=== PATIENT | male | born 1980 | race Caucasian/White ===

== ENCOUNTER 2023-02-21 19:24 | Inpatient (IN) | payer BC ==
[~2023-02-21] VITALS: Ht 175.3 cm; Wt 99.3 kg
[2023-02-21 19:33] VITALS: BP_SYST 220; PULSE 92; RESP 18; TEMP 97.9; O2SAT 99
[2023-02-21] MEDS ORDERED: LABETALOL HCL 20 MG/4 ML CARTRIDGE IVP ONE ×2 (20:00→22:15)
[2023-02-21] MEDS ORDERED: METOPROLOL SUCCINATE 25 MG TAB.SR.24H (TOPROL XL) PO ONE (20:00)
[2023-02-21] MEDS ORDERED: ONDANSETRON HCL 4 MG/2 ML VIAL IVP ONE ×2 (20:15→21:00)
[2023-02-21] MEDS ORDERED: ATENOLOL 50 MG TABLET (TENORMIN) PO ONE (20:30)
[2023-02-21 20:34] LABS: BASOPHILS # (AUTO) 0.1 K/uL (0.0-0.2); BASOPHILS % (AUTO) 0.8 % (0.0-2.0); EOSINOPHILS # (AUTO) 0.1 K/uL (0.0-0.4); EOSINOPHILS % (AUTO) 1.3 % (0.0-4.0); HEMATOCRIT 25.7 % (36-54); HEMOGLOBIN 8.3 g/dL (14.0-18.0); LYMPHOCYTES # (AUTO) 0.8 K/uL (1.0-5.5); LYMPHOCYTES % (AUTO) 12.1 % (20.5-51.5); MEAN CORPUSCULAR HEMOGLOBIN 28 pg (27-31); MEAN CORPUSCULAR HGB CONC 32 % (32-36); MEAN CORPUSCULAR VOLUME 86 fL (79.0-98.0); MONOCYTES # (AUTO) 0.5 K/uL (0.0-1.0); MONOCYTES % (AUTO) 8.4 % (1.7-9.3); NEUTROPHILS # (AUTO) 4.8 K/uL (1.8-7.7); NEUTROPHILS % (AUTO) 77.4 % (40.0-70.0); PLATELET COUNT (AUTO) 172 K/uL (130-430); RED CELL DISTRIBUTION WIDTH 16.2 % (9.0-15.0); WHITE BLOOD COUNT (AUTO) 6.2 K/uL (4.8-10.8)
[2023-02-21 20:46] LABS: PROTHROMBIN TIME 10.5 SECS (9.5-12.5)
[2023-02-21 20:50] LABS: ALANINE AMINOTRANSFERASE 12 U/L (12-78); ALBUMIN 2.8 g/dL (3.4-4.8); ANION GAP 13 (5-15); ASPARTATE AMINOTRANSFERASE 19 U/L (10-37); CALCIUM 8.5 mg/dL (8.4-11.0); CARBON DIOXIDE 13 mmol/L (23-29); CHLORIDE 117 mmol/L (98-107); CREATININE 5.64 mg/dL (0.55-1.30); GFR AFRICAN AMERICAN 14 mL/min (>90); GLUCOSE 81 mg/dL (74-106); SODIUM SERUM 143 mmol/L (136-145); TOTAL BILIRUBIN 0.6 mg/dL (0.0-1.0); TOTAL PROTEIN, SERUM 5.3 g/dL (6.4-8.3); UREA NITROGEN, BLOOD 36 mg/dL (8-21)
[2023-02-21 20:51] LABS: ALCOHOL, BLOOD < 3 mg/dL (<10); GFR NON AFRICAN-AMERICAN 12 mL/min (>90)
[2023-02-21 20:53] LABS: POTASSIUM 6.2 mmol/L (3.5-5.1)
[2023-02-21] MEDS ORDERED: SODIUM BICARBONATE 8.4% JECT 50 MEQ/50 ML SYRINGE IVP ONE (21:00)
[2023-02-21] MEDS ORDERED: DEXTROSE 50% JECT 50 ML DISP.SYRIN IVP ONE (21:00)
[2023-02-21] MEDS ORDERED: LORazepam 2 MG/ML VIAL IVP ONE (21:00)
[2023-02-21] MEDS ORDERED: SODIUM ZIRCONIUM CYCLOSILICATE 10 GM POWD.PACK PO ONE (21:00)
[2023-02-21] MEDS ORDERED: CALCIUM CHLORIDE 1 GM/10 ML DISP.SYRIN (14 mEq Ca++/SYR) IVP ONE (21:00)
[2023-02-21] MEDS ORDERED: INSULIN REGULAR, HUMAN 10 UNITS/0.1 ML, 3 ML VIAL IVP ONE (21:00)
[2023-02-21] MEDS ORDERED: FUROSEMIDE 40 MG/4 ML VIAL IVP ONE (21:15)
[2023-02-21] MEDS ORDERED: HALOPERIDOL LACTATE 5 MG/ML VIAL IM ONE (21:30)
[2023-02-21] MEDS ORDERED: NITROGLYCERIN 1 INCH (GM) OINT. TP ONE (22:15)
[2023-02-21] MEDS ORDERED: DOCUSATE SODIUM 100 MG/10 ML UDC PO PRN (22:30)
[2023-02-21] MEDS ORDERED: MORPHINE 2 MG/ML INJ. SYRINGE IVP PRN (22:30)
[2023-02-21] MEDS ORDERED: HYDROcodone/ACETAMIN 7.5-325 MG TAB PO PRN (22:30)
[2023-02-21] MEDS ORDERED: guaiFENesin/DEXTROMETHORPHAN 10 ML UDC PO PRN (22:30)
[2023-02-21] MEDS ORDERED: ZOLPIDEM TARTRATE 5 MG TABLET PO PRN (22:30)
[2023-02-21] MEDS ORDERED: ONDANSETRON HCL 4 MG/2 ML VIAL IVP PRN (22:30)
[2023-02-21] MEDS ORDERED: ACETAMINOPHEN 500 MG TABLET PO PRN (22:30)
[2023-02-21] MEDS ORDERED: hydrALAZINE HCL 20 MG/ML VIAL IVP ONE (22:45)
[2023-02-21] MEDS ORDERED: DIPHENHYDRAMINE INJ 50 MG/ML VIAL IVP ONE (23:00)
[2023-02-21] MEDS ORDERED: HALOPERIDOL LACTATE 5 MG/ML VIAL IVP ONE (23:00)
[2023-02-21] MEDS ORDERED: AMLO10TA88 PO (23:37)
[2023-02-21] MEDS ORDERED: HYDR-4039 PO (23:37)
[2023-02-21] MEDS ORDERED: CARV12.548 PO (23:37)
[2023-02-22] VITALS (24 sets, daily range): BP systolic 124–195; PULSE 65–102; RESP 10–18; TEMP 97.4–98; O2SAT 95–100
[2023-02-22 00:03] LABS: PHOSPHORUS 4.5 mg/dL (2.7-4.5); THYROID STIMULATING HORMONE 8.38 uIu/mL (0.34-4.82)
[2023-02-22 00:30] LABS: BILIRUBIN,URINE NEGATIVE (NEGATIVE); BLOOD, URINE 3+ (NEGATIVE); CLARITY/URINE CLEAR (CLEAR); COLOR,URINE YELLOW (YELLOW); GLUCOSE,URINE NEGATIVE (NEGATIVE); KETONES,URINE NEGATIVE (NEGATIVE); LEUKOCYTE ESTERASE ,URINE NEGATIVE (NEGATIVE); NITRITE, URINE NEGATIVE (NEGATIVE); PROTEIN URINE 3+ (NEGATIVE); UROBILINOGEN,URINE 0.2 (0.2-1.0)
[2023-02-22 00:50] LABS: BACTERIA,URINE None Seen /HPF (None Seen)
[2023-02-22 00:59] LABS: BARBITURATE, URINE NEGATIVE (NEG <=200); BENZODIAZEPINE, URINE NEGATIVE (NEG <=150); CANNABINOID, URINE POSITIVE (NEG <=50); COCAINE, URINE NEGATIVE (NEG <=150); METHAMPHETAMINES SCREEN,URINE NEGATIVE (NEG <=500); OPIATE, URINE NEGATIVE (NEG <=100); PHENCYCLIDINE SCREEN,URINE NEGATIVE (NEG <=25); UR TRICYCLIC ANTIDEPRESSANTS NEGATIVE (NEG <=300); URINE AMPHETAMINE NEGATIVE (NEG <=500); URINE METHADONE NEGATIVE (NEG <=200); URINE OXYCODONE SCREEN NEGATIVE (NEG <=100); URINE PROPOXYPHENE SCREEN NEGATIVE (NEG <=300)
[2023-02-22] MEDS: hydrALAZINE HCL 20 MG/ML VIAL IVP PRN (01:13)
[2023-02-22] MEDS ORDERED: niCARdipine 2.5 MG/ML, 10 ML VIAL (CARDENE) IV ONE (05:27)
[2023-02-22 05:45] LABS: BASOPHILS # (AUTO) 0.1 K/uL (0.0-0.2); BASOPHILS % (AUTO) 0.9 % (0.0-2.0); EOSINOPHILS # (AUTO) 0.1 K/uL (0.0-0.4); HEMATOCRIT 25.1 % (36-54); LYMPHOCYTES # (AUTO) 0.8 K/uL (1.0-5.5); MEAN CORPUSCULAR HEMOGLOBIN 27 pg (27-31); MEAN CORPUSCULAR HGB CONC 32 % (32-36); MEAN CORPUSCULAR VOLUME 85 fL (79.0-98.0); MONOCYTES # (AUTO) 0.6 K/uL (0.0-1.0); MONOCYTES % (AUTO) 9.8 % (1.7-9.3); NEUTROPHILS # (AUTO) 4.9 K/uL (1.8-7.7); NEUTROPHILS % (AUTO) 76.3 % (40.0-70.0); PLATELET COUNT (AUTO) 165 K/uL (130-430); RED BLOOD CELL COUNT(AUTO) 2.97 MIL/uL (4.2-6.2); RED CELL DISTRIBUTION WIDTH 15.9 % (9.0-15.0); WHITE BLOOD COUNT (AUTO) 6.5 K/uL (4.8-10.8)
[2023-02-22] MEDS: niCARdipine 25 MG in D5W 240 ML IV PRN ×5 (06:15→22:21)
[2023-02-22 06:43] LABS: CALCIUM 8.5 mg/dL (8.4-11.0); CREATININE 5.29 mg/dL (0.55-1.30)
[2023-02-22 06:45] LABS: POTASSIUM 5.9 mmol/L (3.5-5.1)
[2023-02-22 08:28] LABS: ABG O2 SAT% ESTIMATE 91.3 % (94.0-100.0); BLOOD GAS BASE EXCESS -11.6 mmol/L (-3.0-3.0); BLOOD GAS PCO2 23.7 mmHg (32.0-45.0); BLOOD GAS PH 7.328 (7.350-7.450); BLOOD GAS PO2 63.3 mmHg (75.0-100.0)
[2023-02-22 08:40] LABS: BLOOD GAS HCO3 12.2 mmol/L (21.0-27.0)
[2023-02-22 08:41] LABS: ALLEN'S TEST POSITIVE (P)
[2023-02-22] MEDS ORDERED: POTASSIUM CHLORIDE 20 MEQ TAB.PRT.SR PO PRN (09:00)
[2023-02-22] MEDS ORDERED: PANTOPRAZOLE SODIUM 40 MG TAB PO SCH (09:00)
[2023-02-22] MEDS ORDERED: cefTRIAXone 1 GM IVPB PREMIX 50 ML IV SCH (09:00)
[2023-02-22] MEDS ORDERED: SODIUM POLYSTYRENE SULFONATE 15 GM/60 ML UDBTL PO ONE (09:00)
[2023-02-22] MEDS ORDERED: SODIUM BICARBONATE 8.4% JECT 50 MEQ/50 ML SYRINGE IVP ONE (09:15)
[2023-02-22] MEDS: HEPARIN SODIUM,PORCINE 5,000 UNITS/ML VIAL SUBCUT SCH ×2 (10:20→21:40)
[2023-02-22] MEDS ORDERED: SODIUM BICARBONATE 8.4% JECT 150 MEQ in D5W 1,000 ML IVP SCH (11:00)
[2023-02-22] MEDS ORDERED: FUROSEMIDE 40 MG/4 ML VIAL IVP ONE (12:00)
[2023-02-22 13:04] LABS: ALBUMIN 2.6 g/dL (3.4-4.8); CALCIUM 8.4 mg/dL (8.4-11.0); CREATININE 5.64 mg/dL (0.55-1.30); TOTAL BILIRUBIN 0.4 mg/dL (0.0-1.0)
[2023-02-22 13:07] LABS: POTASSIUM 6.2 mmol/L (3.5-5.1)
[2023-02-22] MEDS ORDERED: SODIUM POLYSTYRENE SULFONATE 15 GM/60 ML UDBTL RC ONE (13:30)
[2023-02-22] MEDS ORDERED: SODIUM POLYSTYRENE SULFONATE 15 GM/60 ML UDBTL GT ONE (13:30)
[2023-02-22] MEDS: FUROSEMIDE 100 MG in D5W 90 ML IV SCH (14:00)
[2023-02-22] MEDS ORDERED: FUROSEMIDE 40 MG/4 ML VIAL IVP SCH (21:00)
[2023-02-22] MEDS: cefTRIAXone 1 GM IVPB PREMIX 50 ML IV SCH (21:37)
[2023-02-23] VITALS (24 sets, daily range): BP systolic 112–151; PULSE 70–89; RESP 9–18; TEMP 96.8–98.5; O2SAT 96–100
[2023-02-23] MEDS: niCARdipine 25 MG in D5W 240 ML IV PRN ×8 (01:19→22:04)
[2023-02-23] MEDS: LORazepam 2 MG/ML VIAL IVP PRN ×2 (01:29→23:47)
[2023-02-23 04:50] LABS: BASOPHILS % (AUTO) 0.8 % (0.0-2.0); EOSINOPHILS # (AUTO) 0.1 K/uL (0.0-0.4); EOSINOPHILS % (AUTO) 1.4 % (0.0-4.0); LYMPHOCYTES # (AUTO) 0.7 K/uL (1.0-5.5); MEAN CORPUSCULAR HEMOGLOBIN 28 pg (27-31); MEAN CORPUSCULAR HGB CONC 33 % (32-36); MEAN CORPUSCULAR VOLUME 84 fL (79.0-98.0); MONOCYTES # (AUTO) 0.6 K/uL (0.0-1.0); MONOCYTES % (AUTO) 10.1 % (1.7-9.3); NEUTROPHILS # (AUTO) 4.1 K/uL (1.8-7.7); NEUTROPHILS % (AUTO) 74.7 % (40.0-70.0); PLATELET COUNT (AUTO) 182 K/uL (130-430); RED BLOOD CELL COUNT(AUTO) 2.51 MIL/uL (4.2-6.2); RED CELL DISTRIBUTION WIDTH 16.5 % (9.0-15.0); WHITE BLOOD COUNT (AUTO) 5.4 K/uL (4.8-10.8)
[2023-02-23 05:01] LABS: HEMATOCRIT 21.1 % (36-54); HEMOGLOBIN 6.9 g/dL (14.0-18.0)
[2023-02-23 05:02] LABS: ALBUMIN 2.4 g/dL (3.4-4.8); CALCIUM 8.1 mg/dL (8.4-11.0); CREATININE 6.04 mg/dL (0.55-1.30); PHOSPHORUS 5.3 mg/dL (2.7-4.5); TOTAL BILIRUBIN 0.3 mg/dL (0.0-1.0); TOTAL PROTEIN, SERUM 4.6 g/dL (6.4-8.3)
[2023-02-23 05:11] LABS: POTASSIUM 6.1 mmol/L (3.5-5.1)
[2023-02-23] MEDS: FUROSEMIDE 100 MG in D5W 90 ML IV SCH (06:13)
[2023-02-23] MEDS ORDERED: ACETAMINOPHEN 325 MG TABLET PO ONE (08:15)
[2023-02-23] MEDS ORDERED: LORATADINE 10 MG TABLET PO ONE (08:15)
[2023-02-23] MEDS: HEPARIN SODIUM,PORCINE 5,000 UNITS/ML VIAL SUBCUT SCH ×2 (09:00→21:05)
[2023-02-23 09:26] LABS: TOTAL IRON BIND. CAPACITY 136 ug/dL (250-450)
[2023-02-23] MEDS ORDERED: SODIUM POLYSTYRENE SULFONATE 15 GM/60 ML UDBTL PO ONE (13:45)
[2023-02-23] MEDS: metroNIDAZOLE 250 mg/NS 50 ML IV SCH ×2 (15:15→22:08)
[2023-02-23] MEDS: EPOETIN ALFA-EPBX 4,000 UNITS/ML VIAL SUBCUT SCH (17:59)
[2023-02-23] MEDS: SODIUM BICARBONATE 8.4% JECT 50 MEQ/50 ML SYRINGE IVP SCH ×2 (21:02→22:27)
[2023-02-23] MEDS: cefTRIAXone 1 GM IVPB PREMIX 50 ML IV SCH (22:08)
[2023-02-24] VITALS (24 sets, daily range): BP systolic 119–188; PULSE 78–98; RESP 10–18; TEMP 97.4–98.5; O2SAT 96–100
[2023-02-24] MEDS: SODIUM BICARBONATE 8.4% JECT 50 MEQ/50 ML SYRINGE IVP SCH ×2 (00:28→02:45)
[2023-02-24] MEDS: niCARdipine 25 MG in D5W 240 ML IV PRN ×2 (01:13→05:09)
[2023-02-24] MEDS: metroNIDAZOLE 250 mg/NS 50 ML IV SCH ×3 (05:09→22:12)
[2023-02-24] MEDS: FUROSEMIDE 100 MG in D5W 90 ML IV SCH (05:11)
[2023-02-24 05:50] LABS: BASOPHILS # (AUTO) 0.1 K/uL (0.0-0.2); EOSINOPHILS # (AUTO) 0.2 K/uL (0.0-0.4); EOSINOPHILS % (AUTO) 2.8 % (0.0-4.0); LYMPHOCYTES # (AUTO) 0.8 K/uL (1.0-5.5); LYMPHOCYTES % (AUTO) 15.4 % (20.5-51.5); MEAN CORPUSCULAR HEMOGLOBIN 28 pg (27-31); MEAN CORPUSCULAR HGB CONC 33 % (32-36); MEAN CORPUSCULAR VOLUME 85 fL (79.0-98.0); MONOCYTES # (AUTO) 0.6 K/uL (0.0-1.0); NEUTROPHILS # (AUTO) 3.8 K/uL (1.8-7.7); NEUTROPHILS % (AUTO) 69.8 % (40.0-70.0); PLATELET COUNT (AUTO) 211 K/uL (130-430); RED CELL DISTRIBUTION WIDTH 16.4 % (9.0-15.0); WHITE BLOOD COUNT (AUTO) 5.4 K/uL (4.8-10.8)
[2023-02-24 06:06] LABS: HEPATITIS B CORE AB, TOTAL Negative (Negative); HEPATITIS B SURFACE AG Negative (Negative); HEPATITIS C VIRUS AB Non Reactive (Non Reactive)
[2023-02-24 06:08] LABS: HEMATOCRIT 19.6 % (36-54); HEMOGLOBIN 6.4 g/dL (14.0-18.0)
[2023-02-24 06:18] LABS: CALCIUM 8.4 mg/dL (8.4-11.0); CREATININE 6.6 mg/dL (0.55-1.30); POTASSIUM 5.4 mmol/L (3.5-5.1)
[2023-02-24] MEDS ORDERED: niCARdipine 50 MG in D5W 230 ML IV PRN (08:30)
[2023-02-24] MEDS: HEPARIN SODIUM,PORCINE 5,000 UNITS/ML VIAL SUBCUT SCH ×3 (09:00→22:04)
[2023-02-24] MEDS ORDERED: SODIUM POLYSTYRENE SULFONATE 15 GM/60 ML UDBTL PO ONE (09:30)
[2023-02-24] MEDS ORDERED: FUROSEMIDE 40 MG/4 ML VIAL IVP ONE ×2 (09:30→11:55)
[2023-02-24 10:06] LABS: FOLATE (FOLIC ACID) 4.5 ng/mL (>3.0)
[2023-02-24] MEDS ORDERED: SODIUM BICARBONATE 8.4% JECT 50 MEQ/50 ML SYRINGE IVP ONE (12:30)
[2023-02-24 15:06] LABS: QUANTIFERON TB GOLD Negative (Negative)
[2023-02-24 15:07] LABS: BASOPHILS # (AUTO) 0.1 K/uL (0.0-0.2); BASOPHILS % (AUTO) 0.9 % (0.0-2.0); EOSINOPHILS # (AUTO) 0.1 K/uL (0.0-0.4); EOSINOPHILS % (AUTO) 1.9 % (0.0-4.0); HEMATOCRIT 22.1 % (36-54); HEMOGLOBIN 7.3 g/dL (14.0-18.0); LYMPHOCYTES # (AUTO) 0.7 K/uL (1.0-5.5); LYMPHOCYTES % (AUTO) 11.4 % (20.5-51.5); MEAN CORPUSCULAR HEMOGLOBIN 28 pg (27-31); MEAN CORPUSCULAR HGB CONC 33 % (32-36); MEAN CORPUSCULAR VOLUME 85 fL (79.0-98.0); MONOCYTES # (AUTO) 0.7 K/uL (0.0-1.0); MONOCYTES % (AUTO) 10.5 % (1.7-9.3); NEUTROPHILS # (AUTO) 4.8 K/uL (1.8-7.7); NEUTROPHILS % (AUTO) 75.3 % (40.0-70.0); PLATELET COUNT (AUTO) 219 K/uL (130-430); RED BLOOD CELL COUNT(AUTO) 2.61 MIL/uL (4.2-6.2); RED CELL DISTRIBUTION WIDTH 15.8 % (9.0-15.0); WHITE BLOOD COUNT (AUTO) 6.3 K/uL (4.8-10.8)
[2023-02-24 16:03] LABS: CALCIUM 8.2 mg/dL (8.4-11.0); CREATININE 6.72 mg/dL (0.55-1.30); POTASSIUM 5.3 mmol/L (3.5-5.1)
[2023-02-24] MEDS ORDERED: LIDOCAINE/EPI 1% 1:100000 20 ML VIAL ONE (17:09)
[2023-02-24] MEDS ORDERED: PROPOFOL 200MG/ 20ML VIAL (DIPRIVAN) IV ONE (17:09)
[2023-02-24] MEDS ORDERED: METOCLOPRAMIDE HCL 10 MG/2 ML VIAL ONE (17:09)
[2023-02-24] MEDS ORDERED: ONDANSETRON HCL 4 MG/2 ML VIAL ONE (17:09)
[2023-02-24] MEDS ORDERED: fentaNYL CITRATE/PF 100 MCG/2 ML AMP ONE (17:09)
[2023-02-24] MEDS ORDERED: LIDOCAINE 2%, 20 ML MDV ONE (17:09)
[2023-02-24] MEDS ORDERED: HEPARIN SODIUM, PORCINE 10,000 UNITS/ 10 ML VIAL ONE (17:09)
[2023-02-24] MEDS ORDERED: NS IRRIG SOLN 1000 ML IR ONE (17:09)
[2023-02-24] MEDS ORDERED: BUPIVACAINE /PF 0.75% 10 ML VIAL INJ ONE (17:09)
[2023-02-24] MEDS ORDERED: NS 100 ML BAG ONE (17:09)
[2023-02-24] MEDS ORDERED: MIDAZOLAM HCL/PF 2 MG/2 ML SYRINGE ONE (17:09)
[2023-02-24] MEDS ORDERED: traMADol HCL HCL 50 MG TABLET (ULTRAM) PO PRN (18:30)
[2023-02-24] MEDS ORDERED: NACL 0.9% 1,000 ML IV SCH (18:30)
[2023-02-24] MEDS: cefTRIAXone 1 GM IVPB PREMIX 50 ML IV SCH (22:12)
[2023-02-25] VITALS (24 sets, daily range): BP systolic 129–204; PULSE 83–109; RESP 11–29; TEMP 97.9–99.2; O2SAT 93–99
[2023-02-25 04:58] LABS: EOSINOPHILS # (AUTO) 0.1 K/uL (0.0-0.4); EOSINOPHILS % (AUTO) 1.8 % (0.0-4.0); LYMPHOCYTES # (AUTO) 0.8 K/uL (1.0-5.5); MEAN CORPUSCULAR HEMOGLOBIN 27 pg (27-31); MEAN CORPUSCULAR HGB CONC 33 % (32-36); MEAN CORPUSCULAR VOLUME 83 fL (79.0-98.0); MONOCYTES # (AUTO) 0.7 K/uL (0.0-1.0); MONOCYTES % (AUTO) 15.5 % (1.7-9.3); NEUTROPHILS % (AUTO) 64.7 % (40.0-70.0); PLATELET COUNT (AUTO) 205 K/uL (130-430); RED BLOOD CELL COUNT(AUTO) 2.63 MIL/uL (4.2-6.2); RED CELL DISTRIBUTION WIDTH 15.7 % (9.0-15.0); WHITE BLOOD COUNT (AUTO) 4.7 K/uL (4.8-10.8)
[2023-02-25 05:29] LABS: HEMATOCRIT 21.9 % (36-54); HEMOGLOBIN 7.2 g/dL (14.0-18.0)
[2023-02-25 05:37] LABS: CALCIUM 7.9 mg/dL (8.4-11.0); CREATININE 5.26 mg/dL (0.55-1.30); POTASSIUM 4.4 mmol/L (3.5-5.1)
[2023-02-25] MEDS: metroNIDAZOLE 250 mg/NS 50 ML IV SCH ×3 (05:43→23:06)
[2023-02-25] MEDS: hydrALAZINE HCL 25 MG TABLET PO SCH ×2 (08:19→23:03)
[2023-02-25] MEDS: amLODIPine BESYLATE 10 MG TABLET PO SCH (08:19)
[2023-02-25] MEDS: HEPARIN SODIUM,PORCINE 5,000 UNITS/ML VIAL SUBCUT SCH ×2 (08:32→23:05)
[2023-02-25] MEDS ORDERED: METOPROLOL SUCCINATE 50 MG TAB.SR.24H (TOPROL XL) PO SCH (09:00)
[2023-02-25] MEDS: EPOETIN ALFA-EPBX 4,000 UNITS/ML VIAL SUBCUT SCH (16:55)
[2023-02-25] MEDS: hydrALAZINE HCL 20 MG/ML VIAL IVP PRN (17:20)
[2023-02-25] MEDS: cefTRIAXone 1 GM IVPB PREMIX 50 ML IV SCH (23:06)
[2023-02-26] VITALS (25 sets, daily range): BP systolic 163–247; PULSE 73–108; RESP 9–23; TEMP 97.8–98.2; O2SAT 93–99
[2023-02-26] MEDS: hydrALAZINE HCL 20 MG/ML VIAL IVP PRN ×3 (02:35→17:23)
[2023-02-26] MEDS: metroNIDAZOLE 250 mg/NS 50 ML IV SCH ×3 (05:48→21:28)
[2023-02-26 06:00] LABS: BASOPHILS % (AUTO) 0.7 % (0.0-2.0); EOSINOPHILS # (AUTO) 0.1 K/uL (0.0-0.4); EOSINOPHILS % (AUTO) 2.1 % (0.0-4.0); HEMATOCRIT 24.3 % (36-54); LYMPHOCYTES # (AUTO) 0.8 K/uL (1.0-5.5); LYMPHOCYTES % (AUTO) 12.8 % (20.5-51.5); MEAN CORPUSCULAR HEMOGLOBIN 28 pg (27-31); MEAN CORPUSCULAR HGB CONC 33 % (32-36); MEAN CORPUSCULAR VOLUME 85 fL (79.0-98.0); MONOCYTES # (AUTO) 0.7 K/uL (0.0-1.0); MONOCYTES % (AUTO) 11.5 % (1.7-9.3); NEUTROPHILS # (AUTO) 4.3 K/uL (1.8-7.7); NEUTROPHILS % (AUTO) 72.9 % (40.0-70.0); PLATELET COUNT (AUTO) 214 K/uL (130-430); RED BLOOD CELL COUNT(AUTO) 2.87 MIL/uL (4.2-6.2); RED CELL DISTRIBUTION WIDTH 15.4 % (9.0-15.0); WHITE BLOOD COUNT (AUTO) 5.9 K/uL (4.8-10.8)
[2023-02-26 06:16] LABS: CREATININE 4.16 mg/dL (0.55-1.30); POTASSIUM 4.4 mmol/L (3.5-5.1)
[2023-02-26] MEDS: HEPARIN SODIUM,PORCINE 5,000 UNITS/ML VIAL SUBCUT SCH ×2 (08:14→20:58)
[2023-02-26] MEDS: amLODIPine BESYLATE 10 MG TABLET PO SCH (08:15)
[2023-02-26] MEDS: hydrALAZINE HCL 25 MG TABLET PO SCH ×3 (08:15→21:29)
[2023-02-26] MEDS: METOPROLOL SUCCINATE 50 MG TAB.SR.24H (TOPROL XL) PO SCH (08:16)
[2023-02-26] MEDS: cefTRIAXone 1 GM IVPB PREMIX 50 ML IV SCH (20:56)
[2023-02-27] VITALS (9 sets, daily range): BP systolic 158–194; PULSE 78–88; RESP 18; TEMP 97.5–98.8; O2SAT 98–100
[2023-02-27] MEDS: hydrALAZINE HCL 20 MG/ML VIAL IVP PRN ×2 (03:55→11:08)
[2023-02-27] MEDS: hydrALAZINE HCL 25 MG TABLET PO SCH ×3 (05:42→20:35)
[2023-02-27] MEDS: metroNIDAZOLE 250 mg/NS 50 ML IV SCH ×3 (05:44→20:35)
[2023-02-27] MEDS: amLODIPine BESYLATE 10 MG TABLET PO SCH (09:07)
[2023-02-27] MEDS: METOPROLOL SUCCINATE 50 MG TAB.SR.24H (TOPROL XL) PO SCH (09:08)
[2023-02-27] MEDS: HEPARIN SODIUM,PORCINE 5,000 UNITS/ML VIAL SUBCUT SCH (09:09)
[2023-02-27] MEDS: APIXABAN 2.5 MG TABLET PO SCH (20:34)
[2023-02-27] MEDS: cefTRIAXone 1 GM IVPB PREMIX 50 ML IV SCH (20:35)
[2023-02-28 00:30] VITALS: BP_SYST 170; PULSE 90; RESP 18; TEMP 99.2; O2SAT 100
[2023-02-28] MEDS: hydrALAZINE HCL 20 MG/ML VIAL IVP PRN (04:11)
[2023-02-28] MEDS: metroNIDAZOLE 250 mg/NS 50 ML IV SCH ×3 (05:18→22:09)
[2023-02-28] MEDS: hydrALAZINE HCL 25 MG TABLET PO SCH ×3 (05:22→22:09)
[2023-02-28 05:39] LABS: BASOPHILS % (AUTO) 0.8 % (0.0-2.0); EOSINOPHILS # (AUTO) 0.3 K/uL (0.0-0.4); HEMATOCRIT 24.7 % (36-54); HEMOGLOBIN 8.1 g/dL (14.0-18.0); LYMPHOCYTES # (AUTO) 0.9 K/uL (1.0-5.5); LYMPHOCYTES % (AUTO) 17.2 % (20.5-51.5); MEAN CORPUSCULAR HEMOGLOBIN 28 pg (27-31); MEAN CORPUSCULAR HGB CONC 33 % (32-36); MEAN CORPUSCULAR VOLUME 85 fL (79.0-98.0); MONOCYTES # (AUTO) 0.8 K/uL (0.0-1.0); MONOCYTES % (AUTO) 13.9 % (1.7-9.3); NEUTROPHILS # (AUTO) 3.4 K/uL (1.8-7.7); NEUTROPHILS % (AUTO) 63.1 % (40.0-70.0); PLATELET COUNT (AUTO) 282 K/uL (130-430); RED CELL DISTRIBUTION WIDTH 15.3 % (9.0-15.0); WHITE BLOOD COUNT (AUTO) 5.5 K/uL (4.8-10.8)
[2023-02-28 05:53] LABS: ALBUMIN 1.8 g/dL (3.4-4.8); CALCIUM 8.4 mg/dL (8.4-11.0); CREATININE 3.76 mg/dL (0.55-1.30); POTASSIUM 4.3 mmol/L (3.5-5.1); TOTAL BILIRUBIN 0.2 mg/dL (0.0-1.0); TOTAL PROTEIN, SERUM 4.1 g/dL (6.4-8.3)
[2023-02-28 08:19] VITALS: BP_SYST 178; RESP 16; TEMP 98; O2SAT 98
[2023-02-28] MEDS: METOPROLOL SUCCINATE 50 MG TAB.SR.24H (TOPROL XL) PO SCH (08:26)
[2023-02-28] MEDS: NIFEDIPINE 90 MG TABLET.SA (PROCARDIA XL 90 MG) PO SCH (08:26)
[2023-02-28] MEDS: APIXABAN 2.5 MG TABLET PO SCH ×2 (08:27→21:22)
[2023-02-28 09:33] VITALS: BP_SYST 144; PULSE 89
[2023-02-28 11:22] VITALS: BP_SYST 134; PULSE 85; RESP 18; TEMP 97.4; O2SAT 97
[2023-02-28 15:14] VITALS: BP_SYST 132; PULSE 87; RESP 18; TEMP 98.3; O2SAT 99
[2023-02-28 19:20] VITALS: BP_SYST 140; PULSE 88; RESP 20; TEMP 97.6; O2SAT 98
[2023-02-28] MEDS: cefTRIAXone 1 GM IVPB PREMIX 50 ML IV SCH (21:17)
[2023-03-01 00:56] VITALS: BP_SYST 133; PULSE 88; RESP 18; TEMP 97.5; O2SAT 94
[2023-03-01] MEDS: metroNIDAZOLE 250 mg/NS 50 ML IV SCH ×3 (05:49→23:28)
[2023-03-01] MEDS: hydrALAZINE HCL 25 MG TABLET PO SCH ×3 (05:55→23:25)
[2023-03-01 08:06] VITALS: BP_SYST 175; PULSE 87; RESP 17; TEMP 98.6; O2SAT 97
[2023-03-01] MEDS: METOPROLOL SUCCINATE 50 MG TAB.SR.24H (TOPROL XL) PO SCH (08:32)
[2023-03-01] MEDS: NIFEDIPINE 90 MG TABLET.SA (PROCARDIA XL 90 MG) PO SCH (08:32)
[2023-03-01] MEDS: APIXABAN 2.5 MG TABLET PO SCH ×2 (08:33→21:08)
[2023-03-01] MEDS: hydrALAZINE HCL 20 MG/ML VIAL IVP PRN (11:20)
[2023-03-01 11:53] VITALS: O2SAT 97
[2023-03-01 12:00] VITALS: BP_SYST 155; PULSE 84; RESP 17; TEMP 98.6; O2SAT 98
[2023-03-01] MEDS ORDERED: HEPARIN SODIUM,PORCINE 5,000 UNITS/ML VIAL MC ONE (14:15)
[2023-03-01 16:00] VITALS: BP_SYST 152; PULSE 82; RESP 18; TEMP 98.6; O2SAT 98
[2023-03-01 20:00] VITALS: BP_SYST 140; PULSE 84; RESP 18; TEMP 98.8; O2SAT 98; O2SAT 99
[2023-03-02] VITALS: BP_SYST 143; PULSE 83; RESP 18; TEMP 98.8; O2SAT 99
[2023-03-02] MEDS: hydrALAZINE HCL 25 MG TABLET PO SCH (06:01)
[2023-03-02 08:00] VITALS: BP_SYST 167; PULSE 85; RESP 16; TEMP 98.6; O2SAT 99
[2023-03-02] MEDS ORDERED: APIX5TAB PO (08:02)
[2023-03-02] MEDS ORDERED: NIFE90TA24 PO (08:02)
[2023-03-02] MEDS ORDERED: HYDR100T25 PO (08:02)
[2023-03-02] MEDS ORDERED: TOPXL100 PO (08:02)
[2023-03-02 08:16] VITALS: BP_SYST 167; PULSE 85; RESP 16; TEMP 98.6; O2SAT 99
[2023-03-02 08:44] VITALS: O2SAT 99
[2023-03-02] MEDS: NIFEDIPINE 90 MG TABLET.SA (PROCARDIA XL 90 MG) PO SCH (09:12)
[2023-03-02] MEDS: METOPROLOL SUCCINATE 50 MG TAB.SR.24H (TOPROL XL) PO SCH (09:12)
[2023-03-02] MEDS: APIXABAN 2.5 MG TABLET PO SCH (09:17)
== END 2023-03-02 09:23 | disposition home or self-care (01) | DRG 70 ==
LOC: SED 19:24 → SIC 21:10 → STU 02-27 03:07 → SMU 03-01 12:56
PROVIDERS: ADMIT Family Medicine; ATTEND Family Medicine
PROC: 02HV33Z Insertion of Infusion Device into Superior Vena Cava, Percutaneous Approach (ICD-10-PCS; 2023-02-24)
PROC: B518ZZA Fluoroscopy of Superior Vena Cava, Guidance (ICD-10-PCS; 2023-02-24)
PROC: B548ZZA Ultrasonography of Superior Vena Cava, Guidance (ICD-10-PCS; 2023-02-24)
PROC: 05HY33Z Insertion of Infusion Device into Upper Vein, Percutaneous Approach (ICD-10-PCS; 2023-02-24)
PROC: B54NZZA Ultrasonography of Left Upper Extremity Veins, Guidance (ICD-10-PCS; 2023-02-24)
PROC: 30233N1 Transfusion of Nonautologous Red Blood Cells into Peripheral Vein, Percutaneous Approach (ICD-10-PCS; 2023-02-24)
PROC: 5A1D70Z Performance of Urinary Filtration, Intermittent, Less than 6 Hours Per Day (ICD-10-PCS; 2023-02-24)
PROC: 0JH63XZ Insertion of Tunneled Vascular Access Device into Chest Subcutaneous Tissue and Fascia, Percutaneous Approach (ICD-10-PCS; principal; 2023-02-24 17:09)
PROC: 5A1D70Z Performance of Urinary Filtration, Intermittent, Less than 6 Hours Per Day (ICD-10-PCS; 2023-02-25)
PROC: 5A1D70Z Performance of Urinary Filtration, Intermittent, Less than 6 Hours Per Day (ICD-10-PCS; 2023-02-26)
PROC: 5A1D70Z Performance of Urinary Filtration, Intermittent, Less than 6 Hours Per Day (ICD-10-PCS; 2023-02-27)
PROC: 5A1D70Z Performance of Urinary Filtration, Intermittent, Less than 6 Hours Per Day (ICD-10-PCS; 2023-03-01)
DX: G93.41 Metabolic encephalopathy (principal); E43 Unspecified severe protein-calorie malnutrition; N17.0 Acute kidney failure with tubular necrosis; J69.0 Pneumonitis due to inhalation of food and vomit; I50.43 Acute on chronic combined systolic (congestive) and diastolic (congestive) heart failure; N18.6 End stage renal disease; I13.2 Hypertensive heart and chronic kidney disease with heart failure and with stage 5 chronic kidney disease, or end stage renal disease; I82.C11 Acute embolism and thrombosis of right internal jugular vein; E87.20 Acidosis, unspecified; I16.1 Hypertensive emergency; E87.6 Hypokalemia; D63.1 Anemia in chronic kidney disease; E83.41 Hypermagnesemia; E03.9 Hypothyroidism, unspecified; Z82.49 Family history of ischemic heart disease and other diseases of the circulatory system; Z91.148 Patient's other noncompliance with medication regimen for other reason; Z91.199 Patient's noncompliance with other medical treatment and regimen due to unspecified reason; Z99.2 Dependence on renal dialysis; Z68.32 Body mass index [BMI] 32.0-32.9, adult
CPT/HCPCS: 36415; 36600; 70450-TC; 71045; 76000; 76376; 80048; 80053; 80061; 80307; 81000; 82140; 82150; 82272; 82607; 82728; 82746; 82803; 82962; 83037; 83540; 83550; 83605; 83690; 83735; 83880; 84100; 84439; 84443; 84484; 85025; 85610-TC; 85730-TC; 86480; 86704; 86706; 86803; 86886; 86900; 86901; 86920; 87040; 87081; 87086; 87340; 90935; 90937; 93005; 93306; 93971; 99291; 99292; C1750; G0378; G0482; J0360; J0696; J1200; J1630; J1644; J1815; J1940; J2001; J2060; J2270; J2405; J2704; J2765; J3010; J3465; J3490; J7060; P9021; Q5106

== ENCOUNTER 2024-03-03 04:28 | Inpatient (IN) | payer BC ==
[~2024-03-03] VITALS: Ht 182.9 cm; Wt 82.6 kg
[2024-03-03] VITALS (7 sets, daily range): BP systolic 154–182; PULSE 70–101; RESP 16–20; TEMP 97.7–101; O2SAT 97–99
[~2024-03-03 04:28] MED LIST: APIX5TAB PO; HYDR100T13 PO; NIFE90TA24 PO; TOPXL100 PO
[2024-03-03 05:53] LABS: BASOPHILS % (AUTO) 0.6 % (0.0-2.0); EOSINOPHILS # (AUTO) 0.2 K/uL (0.0-0.4); EOSINOPHILS % (AUTO) 3.8 % (0.0-4.0); LYMPHOCYTES # (AUTO) 0.6 K/uL (1.0-5.5); MEAN CORPUSCULAR HEMOGLOBIN 30 pg (27-31); MEAN CORPUSCULAR HGB CONC 33 % (32-36); MEAN CORPUSCULAR VOLUME 90 fL (79.0-98.0); MONOCYTES # (AUTO) 0.6 K/uL (0.0-1.0); MONOCYTES % (AUTO) 9.7 % (1.7-9.3); NEUTROPHILS # (AUTO) 4.9 K/uL (1.8-7.7); NEUTROPHILS % (AUTO) 76.9 % (40.0-70.0); PLATELET COUNT (AUTO) 280 K/uL (130-430); RED BLOOD CELL COUNT(AUTO) 2.26 MIL/uL (4.2-6.2); RED CELL DISTRIBUTION WIDTH 17.3 % (9.0-15.0); WHITE BLOOD COUNT (AUTO) 6.4 K/uL (4.8-10.8)
[2024-03-03 05:56] LABS: HEMATOCRIT 20.4 % (36-54); HEMOGLOBIN 6.8 g/dL (14.0-18.0)
[2024-03-03 06:20] LABS: ALANINE AMINOTRANSFERASE 37 U/L (12-78); ALBUMIN 3.3 g/dL (3.4-4.8); ANION GAP 10 (5-15); ASPARTATE AMINOTRANSFERASE 42 U/L (10-37); BILIRUBIN,DIRECT 0.2 mg/dL (0.0-0.3); CARBON DIOXIDE 27 mmol/L (23-29); CHLORIDE 104 mmol/L (98-107); GFR AFRICAN AMERICAN 8 mL/min (>90); GLUCOSE 88 mg/dL (74-106); POTASSIUM 4.3 mmol/L (3.5-5.1); SODIUM SERUM 141 mmol/L (136-145); TOTAL BILIRUBIN 0.4 mg/dL (0.0-1.0); TOTAL PROTEIN, SERUM 6.7 g/dL (6.4-8.3); UREA NITROGEN, BLOOD 81 mg/dL (8-21)
[2024-03-03 06:24] LABS: GFR NON AFRICAN-AMERICAN 7 mL/min (>90)
[2024-03-03 06:25] LABS: CREATININE 9.31 mg/dL (0.55-1.30)
[2024-03-03] MEDS ORDERED: HYDROcodone/ACETAMIN 5-325 MG TAB (NORCO/ VICODIN) PO PRN (07:15)
[2024-03-03] MEDS ORDERED: ONDANSETRON HCL 4 MG/2 ML VIAL IVP PRN (07:15)
[2024-03-03] MEDS ORDERED: ACETAMINOPHEN 325 MG TABLET PO PRN (07:15)
[2024-03-03] MEDS ORDERED: AMLO10TA88 PO (08:02)
[2024-03-03] MEDS ORDERED: CALC0.253 PO (08:02)
[2024-03-03] MEDS ORDERED: TACR1CAP7 PO (08:02)
[2024-03-03] MEDS: amLODIPine BESYLATE 10 MG TABLET PO SCH (09:57)
[2024-03-03] MEDS: CARVEDILOL 12.5 MG TABLET (COREG) PO SCH (09:57)
[2024-03-03] MEDS: NEPHROVITE, (FOLIC ACID/VITAMIN B COMP W-C 1 TAB) PO ONE (14:41)
[2024-03-03] MEDS: hydrALAZINE HCL 25 MG TABLET PO SCH (14:42)
[2024-03-03] MEDS ORDERED: ZOLPIDEM TARTRATE 5 MG TABLET PO PRN (15:15)
[2024-03-03] MEDS: IRON DEXTRAN COMPLEX IV ONE (17:00)
[2024-03-03] MEDS: NS IV ONE (17:00)
[2024-03-03] MEDS: EPOETIN ALFA 4,000 UNITS/ML VIAL SUBCUT ONE (18:20)
[2024-03-03] MEDS: IRON DEXTRAN COMPLEX 75 MG in NS 100 ML IV ONE (19:09)
[2024-03-03] MEDS ORDERED: HEPARIN SODIUM, PORCINE 10,000 UNITS/ 10 ML VIAL MC ONE (20:30)
[2024-03-03] MEDS: TACROLIMUS ANHYDROUS 1 MG CAPSULE (PROGRAF) PO SCH (23:45)
[2024-03-03] MEDS: ACETAMINOPHEN 325 MG TABLET PO PRN (23:51)
[2024-03-04 01:00] VITALS: TEMP 103
[2024-03-04 02:45] VITALS: TEMP 99
[2024-03-04] MEDS: CEFEPIME 1 GM/VIAL (MAXIPIME) ONE (02:49)
[2024-03-04] MEDS: CEFEPIME 1 GM in D5W 50 ML IV ONE (02:49)
[2024-03-04 05:20] VITALS: BP_SYST 169; PULSE 82; RESP 20; TEMP 99.2; O2SAT 97
[2024-03-04] MEDS: VANCOMYCIN HCL 1 GM/NS PREMIX 250 ML IV ONE (06:30)
[2024-03-04 06:40] LABS: BASOPHILS % (AUTO) 0.5 % (0.0-2.0); CALCIUM 7.8 mg/dL (8.4-11.0); CREATININE 6.81 mg/dL (0.55-1.30); EOSINOPHILS # (AUTO) 0.1 K/uL (0.0-0.4); EOSINOPHILS % (AUTO) 1.3 % (0.0-4.0); LYMPHOCYTES # (AUTO) 0.7 K/uL (1.0-5.5); LYMPHOCYTES % (AUTO) 7.2 % (20.5-51.5); MEAN CORPUSCULAR HEMOGLOBIN 31 pg (27-31); MEAN CORPUSCULAR HGB CONC 33 % (32-36); MEAN CORPUSCULAR VOLUME 91 fL (79.0-98.0); MONOCYTES # (AUTO) 0.6 K/uL (0.0-1.0); MONOCYTES % (AUTO) 7.1 % (1.7-9.3); NEUTROPHILS # (AUTO) 7.6 K/uL (1.8-7.7); NEUTROPHILS % (AUTO) 83.9 % (40.0-70.0); PLATELET COUNT (AUTO) 297 K/uL (130-430); POTASSIUM 4.5 mmol/L (3.5-5.1); RED BLOOD CELL COUNT(AUTO) 2.28 MIL/uL (4.2-6.2); WHITE BLOOD COUNT (AUTO) 9.1 K/uL (4.8-10.8)
[2024-03-04 06:54] LABS: HEMATOCRIT 20.8 % (36-54)
[2024-03-04 08:00] VITALS: BP_SYST 155; PULSE 80; RESP 14; TEMP 97.9; O2SAT 100
[2024-03-04] MEDS ORDERED: amLODIPine BESYLATE 10 MG TABLET PO SCH (09:00)
[2024-03-04] MEDS: NEPHROVITE, (FOLIC ACID/VITAMIN B COMP W-C 1 TAB) PO SCH (09:51)
[2024-03-04] MEDS: CARVEDILOL 6.25 MG TABLET (COREG) PO SCH (09:51)
[2024-03-04] MEDS: calcitrioL 0.25 MCG CAPSULE PO SCH (09:51)
[2024-03-04 10:00] VITALS: O2SAT 100
[2024-03-04] MEDS: IRON DEXTRAN COMPLEX 100 MG in NS 100 ML IV SCH (17:29)
[2024-03-04 17:45] LABS: BILIRUBIN,URINE NEGATIVE (NEGATIVE); BLOOD, URINE NEGATIVE (NEGATIVE); CLARITY/URINE CLEAR (CLEAR); COLOR,URINE YELLOW (YELLOW); GLUCOSE,URINE NEGATIVE (NEGATIVE); KETONES,URINE NEGATIVE (NEGATIVE); LEUKOCYTE ESTERASE ,URINE NEGATIVE (NEGATIVE); NITRITE, URINE NEGATIVE (NEGATIVE); PH,URINE 8.5 (5.0-8.0); PROTEIN URINE 3+ (NEGATIVE); UROBILINOGEN,URINE 0.2 (0.2-1.0)
[2024-03-04 17:53] LABS: BACTERIA,URINE RARE /HPF (None Seen); MUCUS,URINE None Seen /LPF (None Seen); RBC,URINE NONE SEEN /HPF (0-3); WBC,URINE 0-3 /HPF (0-3)
[2024-03-04 20:00] VITALS: BP_SYST 164; PULSE 83; RESP 17; TEMP 98.6; O2SAT 99
[2024-03-05] VITALS: BP_SYST 154; PULSE 86; RESP 18; TEMP 98.2; O2SAT 98
[2024-03-05] MEDS: CEFEPIME 1 GM in D5W 50 ML IV SCH (03:05)
[2024-03-05 07:36] LABS: CALCIUM 8.3 mg/dL (8.4-11.0); POTASSIUM 4.5 mmol/L (3.5-5.1); VANCOMYCIN,RANDOM 12.1 ug/mL (20.0-30.0)
[2024-03-05 07:50] LABS: BASOPHILS # (AUTO) 0.1 K/uL (0.0-0.2); EOSINOPHILS # (AUTO) 0.2 K/uL (0.0-0.4); EOSINOPHILS % (AUTO) 3.6 % (0.0-4.0); LYMPHOCYTES % (AUTO) 17.6 % (20.5-51.5); MEAN CORPUSCULAR HEMOGLOBIN 31 pg (27-31); MEAN CORPUSCULAR HGB CONC 34 % (32-36); MEAN CORPUSCULAR VOLUME 91 fL (79.0-98.0); MONOCYTES # (AUTO) 0.6 K/uL (0.0-1.0); MONOCYTES % (AUTO) 11.3 % (1.7-9.3); NEUTROPHILS # (AUTO) 3.8 K/uL (1.8-7.7); NEUTROPHILS % (AUTO) 66.5 % (40.0-70.0); PLATELET COUNT (AUTO) 296 K/uL (130-430); RED BLOOD CELL COUNT(AUTO) 2.23 MIL/uL (4.2-6.2); RED CELL DISTRIBUTION WIDTH 16.9 % (9.0-15.0); WHITE BLOOD COUNT (AUTO) 5.7 K/uL (4.8-10.8)
[2024-03-05 08:01] LABS: HEMATOCRIT 20.3 % (36-54); HEMOGLOBIN 6.8 g/dL (14.0-18.0)
[2024-03-05 08:12] LABS: CREATININE 7.8 mg/dL (0.55-1.30)
[2024-03-05 08:45] VITALS: BP_SYST 173; PULSE 83; RESP 16; TEMP 98.4; O2SAT 98
[2024-03-05] MEDS: HEPARIN SODIUM,PORCINE 5,000 UNITS/ML VIAL IV ONE (11:45)
[2024-03-05] MEDS ORDERED: IRON-14 PO (11:56)
[2024-03-05] MEDS ORDERED: NEPH PO (11:56)
[2024-03-05] MEDS: EPOETIN ALFA 4,000 UNITS/ML VIAL SUBCUT SCH (12:19)
[2024-03-05 12:33] VITALS: BP_SYST 173; PULSE 83; RESP 16; TEMP 98.4; O2SAT 98
== END 2024-03-05 12:55 | disposition home or self-care (01) | DRG 291 ==
LOC: SED 04:28 → SMU 07:15
PROVIDERS: ADMIT Internal Medicine; ATTEND Internal Medicine
PROC: 5A1D70Z Performance of Urinary Filtration, Intermittent, Less than 6 Hours Per Day (ICD-10-PCS; principal; 2024-03-03)
PROC: 5A1D70Z Performance of Urinary Filtration, Intermittent, Less than 6 Hours Per Day (ICD-10-PCS; 2024-03-05)
DX: I13.2 Hypertensive heart and chronic kidney disease with heart failure and with stage 5 chronic kidney disease, or end stage renal disease (principal); N18.6 End stage renal disease; R74.01 Elevation of levels of liver transaminase levels; I50.9 Heart failure, unspecified; D63.1 Anemia in chronic kidney disease; Z91.199 Patient's noncompliance with other medical treatment and regimen due to unspecified reason; Z79.899 Other long term (current) drug therapy; Z79.2 Long term (current) use of antibiotics
CPT/HCPCS: 36415; 71045; 80048; 80076; 80202; 81000; 81001; 81015; 83605; 83880; 84484; 85025; 86886; 86900; 86901; 87040; 90935; 90937; 99285; J0692; J0885; J1644; J1750; J3370; J7030; J7040; J7060; J7507

== ENCOUNTER 2024-03-08 11:43 | Inpatient (IN) | payer BC ==
[~2024-03-08] VITALS: Ht 182.9 cm; Wt 84.4 kg
[~2024-03-08 11:43] MED LIST changes: +AMLO10TA88 PO; -APIX5TAB PO; +CALC0.253 PO; +IRON-14 PO; +NEPH PO; -NIFE90TA24 PO; +TACR1CAP7 PO; -TOPXL100 PO
[2024-03-08 12:00] VITALS: BP_SYST 142; PULSE 105; RESP 18; TEMP 101.6; O2SAT 98
[2024-03-08] MEDS ORDERED: ACETAMINOPHEN 500 MG TABLET ONE (12:21)
[2024-03-08 14:26] LABS: BASOPHILS # (AUTO) 0.1 K/uL (0.0-0.2); BASOPHILS % (AUTO) 0.7 % (0.0-2.0); EOSINOPHILS % (AUTO) 0.3 % (0.0-4.0); HEMOGLOBIN 7.2 g/dL (14.0-18.0); LYMPHOCYTES # (AUTO) 0.3 K/uL (1.0-5.5); LYMPHOCYTES % (AUTO) 3.2 % (20.5-51.5); MEAN CORPUSCULAR HEMOGLOBIN 31 pg (27-31); MEAN CORPUSCULAR HGB CONC 34 % (32-36); MEAN CORPUSCULAR VOLUME 90 fL (79.0-98.0); MONOCYTES # (AUTO) 0.6 K/uL (0.0-1.0); MONOCYTES % (AUTO) 6.2 % (1.7-9.3); NEUTROPHILS # (AUTO) 9.1 K/uL (1.8-7.7); NEUTROPHILS % (AUTO) 89.6 % (40.0-70.0); PLATELET COUNT (AUTO) 312 K/uL (130-430); RED BLOOD CELL COUNT(AUTO) 2.34 MIL/uL (4.2-6.2); RED CELL DISTRIBUTION WIDTH 16.8 % (9.0-15.0); WHITE BLOOD COUNT (AUTO) 10.2 K/uL (4.8-10.8)
[2024-03-08 14:44] LABS: INR 1.1 (0.80-1.20); PROTHROMBIN TIME 11.9 SECS (9.5-12.5)
[2024-03-08 14:46] LABS: ALANINE AMINOTRANSFERASE 23 U/L (12-78); ALBUMIN 3.2 g/dL (3.4-4.8); ANION GAP 11 (5-15); ASPARTATE AMINOTRANSFERASE 19 U/L (10-37); BILIRUBIN,DIRECT 0.2 mg/dL (0.0-0.3); CARBON DIOXIDE 28 mmol/L (23-29); CHLORIDE 100 mmol/L (98-107); CREATININE 5.55 mg/dL (0.55-1.30); GFR AFRICAN AMERICAN 14 mL/min (>90); GLUCOSE 84 mg/dL (74-106); POTASSIUM 4.2 mmol/L (3.5-5.1); SODIUM SERUM 139 mmol/L (136-145); TOTAL BILIRUBIN 0.5 mg/dL (0.0-1.0); TOTAL PROTEIN, SERUM 6.7 g/dL (6.4-8.3); UREA NITROGEN, BLOOD 38 mg/dL (8-21)
[2024-03-08 14:57] LABS: GFR NON AFRICAN-AMERICAN 12 mL/min (>90)
[2024-03-08] MEDS ORDERED: [UNRECOGNIZED DRUG - OTHER] PO PRN (15:45)
[2024-03-08] MEDS ORDERED: LORazepam 2 MG/ML VIAL IVP PRN (15:45)
[2024-03-08] MEDS ORDERED: VIT C PO PRN (15:45)
[2024-03-08] MEDS ORDERED: IRON CARBONYL PO PRN (15:45)
[2024-03-08] MEDS ORDERED: VIT B12 PO PRN (15:45)
[2024-03-08] MEDS ORDERED: ONDANSETRON HCL 4 MG/2 ML VIAL IVP PRN (15:45)
[2024-03-08] MEDS ORDERED: DOCUSATE SODIUM 100 MG CAPSULE PO PRN (15:45)
[2024-03-08] MEDS ORDERED: MAGNESIUM SULFATE 50 ML IV PRN (15:45)
[2024-03-08] MEDS ORDERED: ZOLPIDEM TARTRATE 5 MG TABLET PO PRN (15:45)
[2024-03-08] MEDS ORDERED: MORPHINE 2 MG/ML INJ. SYRINGE IVP PRN ×2 (15:45)
[2024-03-08] MEDS ORDERED: POTASSIUM CHLORIDE 20 MEQ TABLET.ER PO PRN (15:45)
[2024-03-08] MEDS ORDERED: MUPIROCIN 2% TOPICAL OINTMENT 22 GM NS PRN (15:45)
[2024-03-08] MEDS: cefTRIAXone 1 GM IVPB PREMIX 50 ML IV ONE (16:28)
[2024-03-08] MEDS: IBUPROFEN 600 MG TABLET PO ONE (17:53)
[2024-03-08 18:03] LABS: BILIRUBIN,URINE NEGATIVE (NEGATIVE); BLOOD, URINE NEGATIVE (NEGATIVE); COLOR,URINE YELLOW (YELLOW); GLUCOSE,URINE NEGATIVE (NEGATIVE); KETONES,URINE NEGATIVE (NEGATIVE); LEUKOCYTE ESTERASE ,URINE NEGATIVE (NEGATIVE); NITRITE, URINE NEGATIVE (NEGATIVE); PROTEIN URINE 3+ (NEGATIVE); UROBILINOGEN,URINE 0.2 (0.2-1.0)
[2024-03-08] MEDS: VANCOMYCIN HCL 750 MG in NS 250 ML IV SCH (18:28)
[2024-03-08 18:34] LABS: CLARITY/URINE SLIGHTLY HAZY (CLEAR)
[2024-03-08 18:35] LABS: RBC,URINE 0-3 /HPF (0-3)
[2024-03-08 18:36] LABS: BACTERIA,URINE FEW /HPF (None Seen); MUCUS,URINE None Seen /LPF (None Seen)
[2024-03-08] MEDS: VANCOMYCIN HCL 750 MG in NS 250 ML IV ONE (19:28)
[2024-03-08] MEDS ORDERED: CEFEPIME 1 GM/VIAL (MAXIPIME) ONE (19:58)
[2024-03-08] MEDS: CEFEPIME 1 GM in D5W 50 ML IV ONE (20:03)
[2024-03-08] MEDS: APIXABAN 2.5 MG TABLET PO SCH (20:41)
[2024-03-08] MEDS: hydrALAZINE HCL 25 MG TABLET PO SCH (21:47)
[2024-03-08 21:51] VITALS: BP_SYST 168; PULSE 75; RESP 16; TEMP 98.2
[2024-03-08 22:11] VITALS: O2SAT 98
[2024-03-08] MEDS: TACROLIMUS ANHYDROUS 1 MG CAPSULE (PROGRAF) PO SCH (22:22)
[2024-03-09] VITALS (7 sets, daily range): BP systolic 132–162; PULSE 76–87; RESP 16–18; TEMP 97.9–98.8; O2SAT 96–98
[2024-03-09 07:46] LABS: BASOPHILS # (AUTO) 0.1 K/uL (0.0-0.2); EOSINOPHILS # (AUTO) 0.2 K/uL (0.0-0.4); EOSINOPHILS % (AUTO) 2.8 % (0.0-4.0); LYMPHOCYTES # (AUTO) 0.6 K/uL (1.0-5.5); LYMPHOCYTES % (AUTO) 10.1 % (20.5-51.5); MEAN CORPUSCULAR HEMOGLOBIN 31 pg (27-31); MEAN CORPUSCULAR HGB CONC 34 % (32-36); MEAN CORPUSCULAR VOLUME 91 fL (79.0-98.0); MONOCYTES # (AUTO) 0.7 K/uL (0.0-1.0); MONOCYTES % (AUTO) 12.2 % (1.7-9.3); NEUTROPHILS # (AUTO) 4.2 K/uL (1.8-7.7); NEUTROPHILS % (AUTO) 73.9 % (40.0-70.0); PLATELET COUNT (AUTO) 271 K/uL (130-430); RED BLOOD CELL COUNT(AUTO) 2.18 MIL/uL (4.2-6.2); RED CELL DISTRIBUTION WIDTH 16.9 % (9.0-15.0); WHITE BLOOD COUNT (AUTO) 5.7 K/uL (4.8-10.8)
[2024-03-09 08:01] LABS: CALCIUM 7.9 mg/dL (8.4-11.0); CREATININE 6.86 mg/dL (0.55-1.30); VANCOMYCIN,RANDOM 13.9 ug/mL (20.0-30.0)
[2024-03-09 08:31] LABS: HEMATOCRIT 19.8 % (36-54); HEMOGLOBIN 6.7 g/dL (14.0-18.0)
[2024-03-09] MEDS: calcitrioL 0.25 MCG CAPSULE PO SCH (09:02)
[2024-03-09] MEDS: NEPHROVITE, (FOLIC ACID/VITAMIN B COMP W-C 1 TAB) PO SCH (09:02)
[2024-03-09] MEDS: amLODIPine BESYLATE 10 MG TABLET PO SCH (09:03)
[2024-03-09 17:00] LABS: ALBUMIN 2.8 g/dL (3.4-4.8); BILIRUBIN,DIRECT 0.1 mg/dL (0.0-0.3); TOTAL BILIRUBIN 0.4 mg/dL (0.0-1.0); TOTAL PROTEIN, SERUM 6.4 g/dL (6.4-8.3)
[2024-03-10 01:15] VITALS: BP_SYST 149; PULSE 80; RESP 16; TEMP 97.4; O2SAT 96
[2024-03-10 05:00] VITALS: BP_SYST 158; PULSE 80; RESP 16; TEMP 97.9; O2SAT 97
[2024-03-10 06:25] LABS: BASOPHILS # (AUTO) 0.1 K/uL (0.0-0.2); EOSINOPHILS # (AUTO) 0.2 K/uL (0.0-0.4); EOSINOPHILS % (AUTO) 3.9 % (0.0-4.0); HEMATOCRIT 22.8 % (36-54); HEMOGLOBIN 7.6 g/dL (14.0-18.0); LYMPHOCYTES # (AUTO) 0.7 K/uL (1.0-5.5); LYMPHOCYTES % (AUTO) 13.6 % (20.5-51.5); MEAN CORPUSCULAR HEMOGLOBIN 30 pg (27-31); MEAN CORPUSCULAR HGB CONC 34 % (32-36); MEAN CORPUSCULAR VOLUME 90 fL (79.0-98.0); MONOCYTES # (AUTO) 0.7 K/uL (0.0-1.0); MONOCYTES % (AUTO) 14.4 % (1.7-9.3); NEUTROPHILS # (AUTO) 3.5 K/uL (1.8-7.7); NEUTROPHILS % (AUTO) 67.1 % (40.0-70.0); PLATELET COUNT (AUTO) 320 K/uL (130-430); RED BLOOD CELL COUNT(AUTO) 2.52 MIL/uL (4.2-6.2); RED CELL DISTRIBUTION WIDTH 16.4 % (9.0-15.0); WHITE BLOOD COUNT (AUTO) 5.2 K/uL (4.8-10.8)
[2024-03-10 07:13] LABS: CALCIUM 8.2 mg/dL (8.4-11.0); VANCOMYCIN,RANDOM 11.1 ug/mL (20.0-30.0)
[2024-03-10 08:00] VITALS: BP_SYST 163; PULSE 74; RESP 18; TEMP 98; O2SAT 99
[2024-03-10 08:30] LABS: CREATININE 8.18 mg/dL (0.55-1.30)
[2024-03-10] MEDS ORDERED: CYCLOBENZAPRINE HCL 10 MG TABLET (FLEXERIL) PO PRN (10:15)
[2024-03-10 12:00] VITALS: BP_SYST 154; PULSE 89; RESP 18; TEMP 98.6; O2SAT 99
[2024-03-10] MEDS: CEFEPIME 0.5 GM in D5W 50 ML IV SCH (12:00)
[2024-03-10 16:00] VITALS: BP_SYST 145; PULSE 99; RESP 18; TEMP 98.2; O2SAT 99
[2024-03-10] MEDS: METOPROLOL SUCCINATE 25 MG TAB.SR.24H (TOPROL XL) PO ONE (18:12)
[2024-03-10] MEDS: HEPARIN SODIUM,PORCINE 5,000 UNITS/ML VIAL MC ONE (20:18)
[2024-03-10] MEDS: DIPHENHYDRAMINE INJ 50 MG/ML VIAL IVP ONE (21:39)
[2024-03-10] MEDS: ACETAMINOPHEN 325 MG TABLET PO PRN (21:40)
[2024-03-10] MEDS ORDERED: METOPROLOL TARTRATE 5 MG/5 ML VIAL IVP ONE (22:30)
[2024-03-10] MEDS ORDERED: hydrALAZINE HCL 20 MG/ML VIAL IVP PRN (22:30)
[2024-03-11] MEDS ORDERED: METOPROLOL SUCCINATE 25 MG TAB.SR.24H (TOPROL XL) PO SCH (09:00)
== END 2024-03-11 23:00 | disposition home or self-care (01) | DRG 872 ==
LOC: SED 11:43 → STU 16:17 → SIC 03-10 21:47 → UNDODISIN 03-10 23:00
PROVIDERS: ADMIT General Practice; ATTEND General Practice
PROC: 02PYX3Z Removal of Infusion Device from Great Vessel, External Approach (ICD-10-PCS; principal; 2024-03-11)
DX: A41.9 Sepsis, unspecified organism (principal); T86.12 Kidney transplant failure; E44.1 Mild protein-calorie malnutrition; D63.8 Anemia in other chronic diseases classified elsewhere; I16.0 Hypertensive urgency; E87.5 Hyperkalemia; I10 Essential (primary) hypertension; Y83.8 Other surgical procedures as the cause of abnormal reaction of the patient, or of later complication, without mention of misadventure at the time of the procedure; Z79.899 Other long term (current) drug therapy; Z79.01 Long term (current) use of anticoagulants; Z68.25 Body mass index [BMI] 25.0-25.9, adult; Y92.89 Other specified places as the place of occurrence of the external cause
CPT/HCPCS: 36415; 71045; 80048; 80076; 80202; 81000; 81001; 81015; 83037; 83605; 83735; 84443; 84484; 85025; 85610; 85730; 87040; 87081; 93005; 93306; 93971; 96365; 99285; G0378; J0692; J0696; J7030; J7050; J7060; J7507